=== PATIENT | male | born 1955 | race Caucasian/White ===

== ENCOUNTER 2018-12-15 06:51 | Outpatient (CLI) | payer OTHER ==
--- NOTE | 2018-12-15 08:02 | ULT ---
ABDOMINAL ULTRASOUND HISTORY: Abdominal pain. FINDINGS: Liver: Within normal limits. Gallbladder: No gallbladder calculi are visualized. There is no gallbladder wall thickening or perich olecystic fluid. Common duct: Common duct is normal in caliber measuring 4 mm in diameter. Pancreas: The limited visualized pancreas demonstrates a normal sonographic appearance. IVC: Limited visualized IVC has a normal sonographic appearance. Aorta: The aorta is normal in caliber. Spleen: Within normal limits. Kidneys: There is a wedge-shaped echogenic area seen at the junction of the superior pole and midport ion right kidney likely due to small area of scarring. Right kidney otherwise demonstrates a normal sonographic appearance. The left kidney demonstrates normal sonographic appearance. There is no hydro nephrosis seen bilaterally. The right kidney measuring 13 cm in length, and the left kidney measures 11.7 cm in length. IMPRESSION: No acute findings are seen on this abdominal ultrasound examination. No gallbladder calculi are seen, and the common duct is normal in caliber.
--- NOTE | 2018-12-16 07:28 | CT ---
CT CHEST NONCONTRAST CT ABDOMEN NONCONTRAST: HISTORY: Chest and abdomen pain. Dyspnea. FINDINGS: Lungs are slightly hyperinflated. No focal mass or infiltrate. No pleural fluid or pneumothorax. Lack of contrast limits evaluation of the soft tissues. Nonspecific lymph nodes within the mediastin um. Calcification within the arterial structures. Small hiatal hernia. A small amount of hyperdense material in the dependent portion of the gallbladder lumen. Each renal collecting system and proximal ureter are decompressed without stone evident. The pelvis was not imaged. Degenerative changes throughout the thoracic spine. IMPRESSION: 1. Pulmonary hyperinflation. No active pulmonary abnormalities are demonstrated. 2. Small hiatal hernia. 3. Cholelithiasis. 4. Atherosclerosis. POS: TPC
== END 2018-12-15 06:52 | disposition home or self-care (01) ==
LOC: SCSULT 06:51
PROVIDERS: ATTEND Family Medicine
DX: R05 Cough (principal); R06.09 Other forms of dyspnea; R53.1 Weakness; F10.10 Alcohol abuse, uncomplicated; R62.7 Adult failure to thrive; I70.0 Atherosclerosis of aorta; K80.20 Calculus of gallbladder without cholecystitis without obstruction; K44.9 Diaphragmatic hernia without obstruction or gangrene; R91.8 Other nonspecific abnormal finding of lung field
CPT/HCPCS: 71250; 82565; 93975

== ENCOUNTER 2019-08-07 07:59 | Day surgery (SDC) | payer OTHER ==
--- NOTE | 2019-08-07 09:30 | SPC ---
SPC CVP LINE PICC INITAL >5: 08/07/2019 9:27 AM INDICATION: Right lower extremity osteomyelitis need for long-term IV antibiotics PROCEDURE: Peripherally placed 46 cm single lumen power PICC line. PICC Line Placement: The left arm was prepped and draped in sterile fashion. One percent lidocaine was used for local anesthetic. Under fluoroscopic and ultrasound guidance, the left basilic vein was patent and accessed with a micr opuncture needle. A guide wire was then advanced into the left basilic vein. A vascular sheath was then advanced over a guide wire, and a single lumen PICC line was trimmed. The PICC line was th en advanced into the central venous system. A final placement film demonstrates the tip of the catheter terminated in the caval-atrial junction. After confirmation of the catheter position, the catheter was sutured in place at the skin entry site . There was no immediate complication. Total fluoroscopic time 1.3 minutes. Total exposure 11,846 mgray/sq cm IMPRESSION: Peripheral placement of a single lumen power PICC line into the left basilic vein using fluoroscopic and ultrasound guidance.
[2019-08-07] MEDS ORDERED: Cefepime 2 GM in Sodium Chloride 0.9% 100 ML IVPB SCH (10:45)
[2019-08-07] MEDS ORDERED: Vancomycin 1 GM in Premix Bag 1 BAG IVPB SCH (10:45)
[2019-08-07] MEDS ORDERED: Sodium Chloride 0.9% 20 ML ONE (11:12)
[2019-08-07 13:04] VITALS: BP 227/103
[2019-08-07 13:14] LABS: #Eosinphils 0.1 thou/uL (0.0-0.7); #Lymphocytes 1.6 thou/uL (1.20-3.40); #Monocytes 1.2 thou/uL (0.11-0.59); #Neutrophils 8.3 thou/uL (1.40-6.50); %Basophils 0.3 % (0.0-1.0); %Eosinophils 0.9 % (0.0-10.0); %Monocytes 10.8 % (0.0-10.0); Hemoglobin 12.6 g/dL (14.0-18.0); Mean Corpuscular Volume 97.3 fL (78.0-98.0); Mean Platelet Volume 8.7 fL (7.4-10.4); Platelet Count 189 thou/uL (130-400); RBC Distribution Width 11.1 % (11.5-14.5); Red Blood Cell (RBC) Count 3.81 mill/uL (4.70-6.10); White Blood Cell (WBC) Count 11.2 thou/uL (4.8-10.8)
[2019-08-07 13:36] LABS: ALT (SGPT) 15 U/L (8-55); AST (SGOT) 16 U/L (5-34); Albumin 3.7 g/dL (3.4-4.8); Alkaline Phosphatase 79 U/L (40-110); Anion Gap 11 mmol/L (10-20); BUN (Urea Nitrogen) 15 mg/dL (8.4-25.7); Bilirubin, Total 0.7 mg/dL (0.2-1.2); CRP (Inflammatory) 12.55 mg/dL (= or < 0.5); Calc. Creatinine Clearance 0 mL/min (70-130); Calcium 9.2 mg/dL (7.8-10.44); Carbon Dioxide 21 mmol/L (23-31); Chloride 105 mmol/L (98-107); Estimated GFR-MDRD 44; Globulin 3.6 g/dL (2.4-3.5); Glucose 174 mg/dL (80-115); Potassium 3.9 mmol/L (3.5-5.1); Protein, Total 7.3 g/dL (5.8-8.1); Sodium 133 mmol/L (136-145)
== END 2019-08-07 13:18 | disposition home or self-care (01) ==
LOC: SPEC 07:59 → ONC/OP 13:18
PROVIDERS: ATTEND Internal Medicine Infectious Disease
DX: M86.271 Subacute osteomyelitis, right ankle and foot (principal)
CPT/HCPCS: 36569; 36592; 80053; 85025; 86140; 96365; 96367; C1751; J0692; J1642; J3370; J3490

== ENCOUNTER 2022-05-13 14:14 | Inpatient (IN) | payer MEDICARE ==
[2022-05-13] MEDS ORDERED: Bisacodyl 10 MG SUPP PR PRN (16:50)
[2022-05-13] MEDS ORDERED: Senokot S 8.6-50 MG TAB PO PRN (16:50)
[2022-05-13] MEDS ORDERED: Calcium Carbonate 500 MG ChewTAB PO PRN (16:50)
[2022-05-13] MEDS ORDERED: Piperacillin/Tazobactam 3.375 GM in Sodium Chloride 0.9% 100 ML IVPB SCH ×2 (17:00→21:00)
[2022-05-13] MEDS: Lactated Ringer's 1,000 ML IV SCH (18:06)
[2022-05-13] MEDS: Morphine 2 MG/ML VIAL SLOW IVP PRN (18:22)
[2022-05-13] MEDS: Ondansetron PF 4 MG/2 ML Vial IVP PRN (18:23)
[2022-05-13 19:14] LABS: SARS-CoV-2 NAA Rapid Test Not Detected (NotDetected)
[2022-05-13] MEDS ORDERED: hydrALAZINE 25 MG TAB PO SCH (21:00)
[2022-05-13] MEDS ORDERED: cloNIDine 0.1 MG TAB PO SCH (21:00)
[2022-05-13] MEDS ORDERED: Rosuvastatin 20 MG TAB PO SCH (21:00)
[2022-05-14] MEDS: Acetaminophen 325 MG TAB PO PRN
[2022-05-14] MEDS ORDERED: Sodium Chloride 0.9% 500 ML IV SCH (02:15)
[2022-05-14] MEDS ORDERED: Dextrose 5% in Water 1,000 ML IV PRN (02:31)
[2022-05-14] MEDS ORDERED: Dextrose 50% Abboject 50 ML SYRINGE SLOW IVP PRN (02:31)
[2022-05-14] MEDS ORDERED: Albumin 25% 25 GM/100 ML BOT IVPB SCH ×2 (02:45→14:12)
[2022-05-14] MEDS ORDERED: Dextrose 5 % And 0.9 % NaCl 1,000 ML IV SCH (02:45)
[2022-05-14 02:47] LABS: Hemoglobin 8.4 g/dL (14.0-18.0); Mean Corpuscular HGB CONC 33.6 g/dL (32.0-36.0); Mean Corpuscular Hemoglobin 31.4 pg (27.0-31.0); Mean Corpuscular Volume 93.5 fl (78.0-98.0); RBC Distribution Width 14.8 % (11.5-14.5); Red Blood Cell (RBC) Count 2.67 mill/uL (4.70-6.10); White Blood Cell (WBC) Count 4.7 10x3/uL (4.8-10.8)
[2022-05-14] MEDS ORDERED: Vancomycin 1.5 GRAM/300 ML BAG IVPB SCH (02:52)
[2022-05-14 02:54] LABS: INR-International Normal Ratio 1.3; Prothrombin Time 17.1 sec (12.0-14.7)
[2022-05-14 02:55] LABS: PTT 42.7 sec (22.9-36.1)
[2022-05-14] MEDS ORDERED: NOREPINEPHRINE 8 MG/250 ML-D5W 250 ML IVPB SCH (03:00)
[2022-05-14 03:09] LABS: MDiff Complete? YES; Platelet Count 92 10x3/uL (130-400)
[2022-05-14] MEDS: Lactated Ringer's 1,000 ML IV SCH (03:09)
[2022-05-14 03:10] LABS: Band 27 % (5-11); Lymphocytes 8 % (21-51); Metamyelocyte 1 % (0-0); Monocytes 6 % (0-10); Neutrophil 58 % (42-75); Platelet Morphology Comment Appears Decreased
[2022-05-14 03:24] LABS: Troponin I 0.021 ng/mL (< 0.028)
[2022-05-14 03:27] LABS: ALT (SGPT) 147 U/L (8-55); AST (SGOT) 170 U/L (5-34); Alkaline Phosphatase 97 U/L (40-110); Anion Gap 12 mmol/L (10-20); BUN (Urea Nitrogen) 39 mg/dL (8.4-25.7); Bilirubin, Total 2.5 mg/dL (0.2-1.2); Calc. Creatinine Clearance 44 mL/min (70-130); Calcium 8.1 mg/dL (7.8-10.44); Carbon Dioxide 20 mmol/L (23-31); Chloride 115 mmol/L (98-107); Estimated GFR 21; Globulin 2.4 g/dL (2.4-3.5); Glucose 64 mg/dL (80-115); Magnesium 1.2 mg/dL (1.6-2.6); Potassium 3.4 mmol/L (3.5-5.1); Protein, Total 5.4 g/dL (5.8-8.1); Sodium 144 mmol/L (136-145)
[2022-05-14] MEDS ORDERED: Magnesium Sulfate In Water 4 GM in Premix Bag 1 BAG IVPB SCH (04:00)
[2022-05-14] MEDS ORDERED: Dextrose 5 %-0.45 % NaCl 1,000 ML IV SCH (04:00)
[2022-05-14] MEDS: VANCOMYCIN 1.75 GM/500 ML BAG 1.75 GM in Premix Bag 1 BAG IVPB SCH (04:05)
[2022-05-14] MEDS ORDERED: Meropenem 1 GM in Sodium Chloride 0.9% 100 ML IVPB SCH (05:00)
[2022-05-14 05:44] LABS: Lactic Acid 1.7 mmol/L (0.5-2.2)
[2022-05-14] MEDS ORDERED: Carvedilol 25 MG TAB PO SCH (08:00)
[2022-05-14] MEDS ORDERED: Magnesium 2 GM/50 ML(in water) 2 GM in Premix Bag 1 BAG IVPB SCH (08:30)
[2022-05-14] MEDS: Morphine 2 MG/ML VIAL SLOW IVP PRN ×2 (08:39→13:36)
[2022-05-14] MEDS: Ondansetron PF 4 MG/2 ML Vial IVP PRN (08:50)
[2022-05-14] MEDS ORDERED: Amlodipine 5 MG TAB PO SCH (09:00)
[2022-05-14] MEDS ORDERED: Aspirin 81 mg Enteric Coated Tablet PO SCH (09:00)
[2022-05-14] MEDS ORDERED: Lansoprazole 3 MG/ML ORAL SUSPENSION PER TUBE SCH (09:00)
[2022-05-14] MEDS: Dextrose 5 %-0.45 % NaCl 1,000 ML IV SCH ×2 (14:17→20:50)
[2022-05-14] MEDS: Albumin 25% 25 GM/100 ML BOT IVPB SCH ×2 (14:17→20:49)
[2022-05-14] MEDS: Meropenem 500 MG in Sodium Chloride 0.9% 100 ML IVPB SCH (14:18)
[2022-05-14] MEDS ORDERED: Iopamidol 30 ML ONE (14:52)
[2022-05-14] MEDS ORDERED: Indomethacin 50 MG SUPP ONE (14:53)
[2022-05-14] MEDS ORDERED: Albumin 5% 500 ML ONE (15:10)
[2022-05-14] MEDS ORDERED: fentaNYL PF 100 MCG/2 ML SYRINGE ONE (15:10)
[2022-05-14 15:55] LABS: INR-International Normal Ratio 1.7; Prothrombin Time 20.8 sec (12.0-14.7)
[2022-05-14] MEDS ORDERED: Bupivacaine/Epinephrine 0.25% 30 ML VIAL ONE (17:00)
[2022-05-14] MEDS ORDERED: Bupivacaine HCl 0.5%/Epinephrine 1:200,000/PF 30 ml Vial ONE (17:00)
[2022-05-14] MEDS ORDERED: Fentanyl 250 MCG/5 ML VIAL ONE (17:18)
[2022-05-14] MEDS ORDERED: SUGAMMADEX SODIUM 200 MG/2 ML VIAL ONE (17:18)
[2022-05-14] MEDS ORDERED: Sevoflurane 250 ML INH ANEST BOTTLE ONE (17:20)
[2022-05-14] MEDS ORDERED: Rocuronium Bromide 10 MG/ML (10ML VIAL) ONE (17:21)
[2022-05-14] MEDS ORDERED: Calcium Chloride 1 GM/10 ML Abboject SYRINGE ONE (17:21)
[2022-05-14] MEDS ORDERED: Vecuronium 10 MG VIAL ONE (17:21)
[2022-05-14] MEDS ORDERED: Albumin 5% 250 ML ONE ×2 (18:15→18:16)
[2022-05-14] MEDS ORDERED: Albumin 5% 1,000 ML ONE (18:15)
[2022-05-14] MEDS ORDERED: Sodium Bicarb 50 MEQ/50 ML VIAL ONE (18:26)
[2022-05-14] MEDS ORDERED: Propofol 1,000 MG/100 ML VIAL IV ONE (19:40)
[2022-05-14] MEDS ORDERED: Fentanyl CADD 100 ML ONE (19:40)
[2022-05-14] MEDS ORDERED: Fentanyl CADD 100 ML IV SCH (20:00)
[2022-05-14] MEDS ORDERED: DISCONTINUE PREVIOUS NARCOTIC PAIN MEDICATIONS AND BENZODIAZEPINES FS SCH (20:00)
[2022-05-14] MEDS ORDERED: Morphine 2 MG/ML VIAL SLOW IVP PRN (20:00)
[2022-05-14] MEDS ORDERED: Propofol BOLUS 1,000 MG/100 ML VIAL IV PRN (20:00)
[2022-05-14] MEDS ORDERED: Propofol 1,000 MG/100 ML VIAL IV PRN (20:00)
[2022-05-14] MEDS ORDERED: Lorazepam 2 MG/ML VIAL SLOW IVP PRN (20:00)
[2022-05-14] MEDS ORDERED: Fentanyl BOLUS 250 ML IVPB PRN (20:00)
[2022-05-14 20:35] LABS: Actual Bicarbonate (HCO3a) 18.6 mEq/L (22-28); Base Excess (BEa) -5.5 mEq/L (-2.0 to +3.0); Calcium, Ionized (arterial) 1.07 mmol/L (1.12-1.30); Carboxyhemoglobin (COHb) 0.3 gm% (0.0-3.0); Hemoglobin (Hb) 7.8 g/dL (14.0-18.0); O2 Tension (PaO2), arterial 64.8 mmHg (> 80.0); Potassium - ABG Lab 4.11 mmol/L (3.70-5.30)
[2022-05-14 20:36] LABS: Puncture Site RRA
[2022-05-15] MEDS: Albumin 25% 25 GM/100 ML BOT IVPB SCH ×4 (00:47→18:48)
[2022-05-15 01:21] LABS: Hemoglobin 8.3 g/dL (14.0-18.0); Mean Corpuscular HGB CONC 33.7 g/dL (32.0-36.0); Mean Corpuscular Hemoglobin 31.7 pg (27.0-31.0); Mean Corpuscular Volume 93.8 fl (78.0-98.0); Mean Platelet Volume 9.3 fL (7.4-10.4); Platelet Count 93 10x3/uL (130-400); RBC Distribution Width 14.8 % (11.5-14.5); Red Blood Cell (RBC) Count 2.61 mill/uL (4.70-6.10); White Blood Cell (WBC) Count 6.6 10x3/uL (4.8-10.8)
[2022-05-15] MEDS: Meropenem 500 MG in Sodium Chloride 0.9% 100 ML IVPB SCH ×2 (01:30→13:28)
[2022-05-15 01:32] LABS: INR-International Normal Ratio 1.6; PTT 41.4 sec (22.9-36.1)
[2022-05-15 01:40] LABS: ALT (SGPT) 147 U/L (8-55); AST (SGOT) 182 U/L (5-34); Albumin 3.6 g/dL (3.4-4.8); Alkaline Phosphatase 102 U/L (40-110); Anion Gap 16 mmol/L (10-20); BUN (Urea Nitrogen) 41 mg/dL (8.4-25.7); Bilirubin, Direct 2.7 mg/dL (0.1-0.3); Bilirubin, Total 3.4 mg/dL (0.2-1.2); Calc. Creatinine Clearance 32 mL/min (70-130); Calcium 8.1 mg/dL (7.8-10.44); Carbon Dioxide 19 mmol/L (23-31); Chloride 114 mmol/L (98-107); Estimated GFR 19; Glucose 142 mg/dL (80-115); Magnesium 2.6 mg/dL (1.6-2.6); Phosphorus 3.1 mg/dL (2.3-4.7); Potassium 3.8 mmol/L (3.5-5.1); Protein, Total 5.6 g/dL (5.8-8.1); Sodium 145 mmol/L (136-145)
[2022-05-15 02:02] LABS: Anisocytosis SLIGHT = 6-15 cells (100X) (0-5/hpf); Band 33 % (5-11); Eosinophils 3 % (0-10); Lymphocytes 11 % (21-51); MDiff Complete? YES; Monocytes 2 % (0-10); Neutrophil 50 % (42-75); Platelet Morphology Comment Appears Decreased; Polychromasia SLIGHT = 2-3 cells (100X) (0-2/hpf); Vacuoles SLIGHT
[2022-05-15] MEDS: VANCOMYCIN 1.75 GM/500 ML BAG 1.75 GM in Premix Bag 1 BAG IVPB SCH (03:14)
[2022-05-15 04:42] LABS: INR-International Normal Ratio 1.7; PTT 44.7 sec (22.9-36.1); Prothrombin Time 20.7 sec (12.0-14.7)
[2022-05-15 05:00] LABS: ALT (SGPT) 132 U/L (8-55); AST (SGOT) 159 U/L (5-34); Albumin 3.5 g/dL (3.4-4.8); Alkaline Phosphatase 100 U/L (40-110); Anion Gap 16 mmol/L (10-20); BUN (Urea Nitrogen) 42 mg/dL (8.4-25.7); Calc. Creatinine Clearance 32 mL/min (70-130); Calcium 7.9 mg/dL (7.8-10.44); Carbon Dioxide 20 mmol/L (23-31); Chloride 113 mmol/L (98-107); Estimated GFR 19; Glucose 119 mg/dL (80-115); Lipase 660 U/L (8-78); Magnesium 2.5 mg/dL (1.6-2.6); Potassium 3.5 mmol/L (3.5-5.1); Protein, Total 5.5 g/dL (5.8-8.1); Sodium 145 mmol/L (136-145)
[2022-05-15 05:01] LABS: ALT (SGPT) 130 U/L (8-55); AST (SGOT) 160 U/L (5-34); Albumin 3.7 g/dL (3.4-4.8); Alkaline Phosphatase 107 U/L (40-110); Bilirubin, Direct 2.4 mg/dL (0.1-0.3); Bilirubin, Total 2.9 mg/dL (0.2-1.2); Phosphorus 2.9 mg/dL (2.3-4.7); Protein, Total 5.5 g/dL (5.8-8.1)
[2022-05-15 05:18] LABS: Anisocytosis SLIGHT = 6-15 cells (100X) (0-5/hpf); Band 34 % (5-11); Eosinophils 3 % (0-10); Hemoglobin 7.6 g/dL (14.0-18.0); Lymphocytes 6 % (21-51); MDiff Complete? YES; Mean Corpuscular HGB CONC 34.4 g/dL (32.0-36.0); Mean Corpuscular Hemoglobin 32.2 pg (27.0-31.0); Mean Corpuscular Volume 93.6 fl (78.0-98.0); Mean Platelet Volume 9.3 fL (7.4-10.4); Metamyelocyte 3 % (0-0); Monocytes 1 % (0-10); Myelocyte 1 % (0-0); Neutrophil 52 % (42-75); Nucleated RBC 1 % (0); Ovalocytes SLIGHT = 2-5 cells (100X) (0-1/hpf); Platelet Count 84 10x3/uL (130-400); Platelet Morphology Comment Appears Decreased; Polychromasia SLIGHT = 2-3 cells (100X) (0-2/hpf); RBC Distribution Width 14.6 % (11.5-14.5); Red Blood Cell (RBC) Count 2.37 mill/uL (4.70-6.10); White Blood Cell (WBC) Count 7.4 10x3/uL (4.8-10.8)
[2022-05-15] MEDS: Dextrose 5 %-0.45 % NaCl 1,000 ML IV SCH ×2 (05:35→13:38)
[2022-05-15 07:33] LABS: Actual Bicarbonate (HCO3a) 20.6 mEq/L (22-28); Base Excess (BEa) -3.5 mEq/L (-2.0 to +3.0); CO2 Tension 33.1 mmHg (35.0-45.0); Calcium, Ionized (arterial) 1.01 mmol/L (1.12-1.30); Carboxyhemoglobin (COHb) 0.7 gm% (0.0-3.0); Hemoglobin (Hb) 7.6 g/dL (14.0-18.0); O2 Tension (PaO2), arterial 119.5 mmHg (> 80.0); Potassium - ABG Lab 3.51 mmol/L (3.70-5.30); pH, Arterial 7.41 (7.35-7.45)
[2022-05-15 07:36] LABS: ALV-art Gradient 195.625 mmHg (0-20); Puncture Site Arterial Line
[2022-05-15] MEDS: Lansoprazole 15 MG/5 ML (BATCHED)UDCUP PER TUBE SCH (10:20)
[2022-05-15] MEDS ORDERED: Dexmedetomidine In 0.9 % NaCl 100 ML IVPB SCH (11:30)
[2022-05-15] MEDS ORDERED: Metolazone 2.5 MG TAB PO SCH (15:15)
[2022-05-16] MEDS: Dextrose 5 %-0.45 % NaCl 1,000 ML IV SCH ×2 (00:53→16:36)
[2022-05-16] MEDS: Albumin 25% 25 GM/100 ML BOT IVPB SCH ×5 (00:57→23:59)
[2022-05-16] MEDS: Meropenem 500 MG in Sodium Chloride 0.9% 100 ML IVPB SCH ×2 (01:34→14:05)
[2022-05-16 05:20] LABS: INR-International Normal Ratio 1.4; Prothrombin Time 17.6 sec (12.0-14.7)
[2022-05-16 05:21] LABS: PTT 43.7 sec (22.9-36.1)
[2022-05-16 05:30] LABS: ALT (SGPT) 99 U/L (8-55); AST (SGOT) 108 U/L (5-34); Albumin 3.8 g/dL (3.4-4.8); Alkaline Phosphatase 133 U/L (40-110); Anion Gap 14 mmol/L (10-20); BUN (Urea Nitrogen) 48 mg/dL (8.4-25.7); Bilirubin, Total 3.3 mg/dL (0.2-1.2); Calc. Creatinine Clearance 27 mL/min (70-130); Calcium 8.1 mg/dL (7.8-10.44); Carbon Dioxide 19 mmol/L (23-31); Chloride 112 mmol/L (98-107); Estimated GFR 15; Globulin 2.1 g/dL (2.4-3.5); Glucose 122 mg/dL (80-115); Magnesium 2.4 mg/dL (1.6-2.6); Potassium 3.5 mmol/L (3.5-5.1); Protein, Total 5.9 g/dL (5.8-8.1); Sodium 141 mmol/L (136-145)
[2022-05-16 05:38] LABS: Band 26 % (5-11); Eosinophils 9 % (0-10); Hemoglobin 8.2 g/dL (14.0-18.0); Lymphocytes 10 % (21-51); MDiff Complete? YES; Mean Corpuscular HGB CONC 34.1 g/dL (32.0-36.0); Mean Corpuscular Hemoglobin 31.9 pg (27.0-31.0); Mean Corpuscular Volume 93.7 fl (78.0-98.0); Mean Platelet Volume 10.2 fL (7.4-10.4); Metamyelocyte 1 % (0-0); Monocytes 1 % (0-10); Neutrophil 53 % (42-75); Platelet Count 75 10x3/uL (130-400); Platelet Morphology Comment Appears Decreased; RBC Distribution Width 14.4 % (11.5-14.5); RBC Morphology Normal; Red Blood Cell (RBC) Count 2.58 mill/uL (4.70-6.10); White Blood Cell (WBC) Count 7.4 10x3/uL (4.8-10.8)
[2022-05-16] MEDS ORDERED: Metolazone 2.5 MG TAB PO SCH (09:00)
[2022-05-16] MEDS: Lansoprazole 15 MG/5 ML (BATCHED)UDCUP PER TUBE SCH (11:09)
[2022-05-16] MEDS: Lactated Ringer's 1,000 ML IV SCH (11:09)
[2022-05-16 17:19] LABS: Hemoglobin 8.6 g/dL (14.0-18.0); Mean Corpuscular HGB CONC 33.8 g/dL (32.0-36.0); Mean Corpuscular Hemoglobin 31.9 pg (27.0-31.0); Mean Corpuscular Volume 94.3 fl (78.0-98.0); Mean Platelet Volume 9.6 fL (7.4-10.4); Platelet Count 64 10x3/uL (130-400); RBC Distribution Width 14.7 % (11.5-14.5); Red Blood Cell (RBC) Count 2.71 mill/uL (4.70-6.10); White Blood Cell (WBC) Count 9.1 10x3/uL (4.8-10.8)
[2022-05-16 17:30] LABS: INR-International Normal Ratio 1.2; PTT 41.6 sec (22.9-36.1); Prothrombin Time 16.2 sec (12.0-14.7)
[2022-05-16 17:32] LABS: Band 13 % (5-11); Eosinophils 13 % (0-10); Lymphocytes 11 % (21-51); MDiff Complete? YES; Monocytes 4 % (0-10); Neutrophil 59 % (42-75); Ovalocytes SLIGHT = 2-5 cells (100X) (0-1/hpf); Platelet Morphology Comment Appears Decreased; Polychromasia SLIGHT = 2-3 cells (100X) (0-2/hpf)
[2022-05-16] MEDS: hydrALAZINE 20 MG/ML VIAL SLOW IVP PRN (20:08)
[2022-05-17] MEDS: Lactated Ringer's 1,000 ML IV SCH (03:26)
[2022-05-17 04:15] LABS: Reticulocyte Count 2.2 % (0.5-1.5)
[2022-05-17] MEDS: hydrALAZINE 20 MG/ML VIAL SLOW IVP PRN ×2 (04:17→19:10)
[2022-05-17 04:27] LABS: Band 17 % (5-11); Eosinophils 3 % (0-10); Hemoglobin 7.9 g/dL (14.0-18.0); Hypochromia SLIGHT = 6-15 cells (100X) (0-5/hpf); Lymphocytes 14 % (21-51); MDiff Complete? YES; Mean Corpuscular HGB CONC 33.8 g/dL (32.0-36.0); Mean Corpuscular Hemoglobin 32.1 pg (27.0-31.0); Mean Corpuscular Volume 94.7 fl (78.0-98.0); Mean Platelet Volume 10.2 fL (7.4-10.4); Monocytes 17 % (0-10); Neutrophil 48 % (42-75); Platelet Count 58 10x3/uL (130-400); Platelet Morphology Comment Appears Decreased; RBC Distribution Width 14.6 % (11.5-14.5); Reactive Lymphocytes 1 % (0-10); Red Blood Cell (RBC) Count 2.46 mill/uL (4.70-6.10); White Blood Cell (WBC) Count 7.8 10x3/uL (4.8-10.8)
[2022-05-17 04:29] LABS: Iron 20 ug/dL (65-175); Iron Binding Capacity, Total 85 mcg/dL (261-462)
[2022-05-17 04:30] LABS: ALT (SGPT) 66 U/L (8-55); AST (SGOT) 62 U/L (5-34); Albumin 3.7 g/dL (3.4-4.8); Alkaline Phosphatase 222 U/L (40-110); Anion Gap 13 mmol/L (10-20); BUN (Urea Nitrogen) 56 mg/dL (8.4-25.7); Bilirubin, Total 2.9 mg/dL (0.2-1.2); Calc. Creatinine Clearance 25 mL/min (70-130); Calcium 8.6 mg/dL (7.8-10.44); Carbon Dioxide 20 mmol/L (23-31); Chloride 113 mmol/L (98-107); Estimated GFR 13; Globulin 2.1 g/dL (2.4-3.5); Glucose 88 mg/dL (80-115); Iron 20 ug/dL (65-175); Iron Binding Capacity, Total 86 mcg/dL (261-462); Magnesium 2.4 mg/dL (1.6-2.6); Potassium 3.7 mmol/L (3.5-5.1); Protein, Total 5.8 g/dL (5.8-8.1); Sodium 142 mmol/L (136-145)
[2022-05-17 04:59] LABS: HBCM Index 0.08 S/CO (0-0.79); HBSAg Index 0.26 S/CO (0-0.99); Hep A IgM AB Non-Reactive (NonReactive); Hep A IgM S/CO 0.24 S/CO (0-0.79); Hep B Surf Ag Non-Reactive S/CO (NonReactive); Hepatitis B Core IgM Abs Non-Reactive (NonReactive)
[2022-05-17 05:04] LABS: Vitamin B12 Greater than 2000 pg/mL (211-911)
[2022-05-17 05:16] LABS: Ferritin 2653.17 ng/mL (22-322)
[2022-05-17] MEDS: Albumin 25% 25 GM/100 ML BOT IVPB SCH (05:29)
[2022-05-17] MEDS ORDERED: Metolazone 5 MG TAB PO SCH (08:30)
[2022-05-17] MEDS: Ondansetron PF 4 MG/2 ML Vial IVP PRN (11:17)
[2022-05-17 11:23] LABS: Bacteria/HPF 1+ HPF (None Seen); Bilirubin Negative (Negative); Blood, Urine Trace (Negative); Clarity Turbid (Clear); Glucose, Urine (Dipstick) Normal (Negative); Ketone, Urine Negative (Negative); Leukocyte Negative Leu/uL (Negative); Nitrite Negative (Negative); Protein, Urine (Dipstick) 100 mg/dL (Neg-Trace); RBC/HPF 0-3 HPF (0-3); Specific Gravity, Urine 1.013 (1.002-1.036); Squamous Epithelial 0-3 HPF (0-3); Urobilinogen Normal mg/dL (Less than 2); WBC/HPF 0-3 HPF (0-3); pH, Urine 5.5 (5.0-9.0)
[2022-05-17] MEDS: Lansoprazole 15 MG/5 ML (BATCHED)UDCUP PER TUBE SCH (11:35)
[2022-05-17] MEDS ORDERED: Scopolamine 1.5 mg/72 hour Patch TD SCH (12:00)
[2022-05-17] MEDS: Meropenem 500 MG in Sodium Chloride 0.9% 100 ML IVPB SCH ×2 (13:15)
[2022-05-18] MEDS: Meropenem 500 MG in Sodium Chloride 0.9% 100 ML IVPB SCH (00:29)
[2022-05-18] MEDS: Lactated Ringer's 1,000 ML IV SCH ×2 (00:30→10:05)
[2022-05-18 04:29] LABS: INR-International Normal Ratio 1.2; Prothrombin Time 15.3 sec (12.0-14.7)
[2022-05-18 04:30] LABS: PTT 37.6 sec (22.9-36.1)
[2022-05-18 04:43] LABS: ALT (SGPT) 58 U/L (8-55); AST (SGOT) 57 U/L (5-34); Albumin 3.6 g/dL (3.4-4.8); Alkaline Phosphatase 265 U/L (40-110); Anion Gap 16 mmol/L (10-20); BUN (Urea Nitrogen) 65 mg/dL (8.4-25.7); Bilirubin, Total 2.4 mg/dL (0.2-1.2); Calc. Creatinine Clearance 23 mL/min (70-130); Calcium 8.7 mg/dL (7.8-10.44); Carbon Dioxide 18 mmol/L (23-31); Chloride 113 mmol/L (98-107); Estimated GFR 12; Globulin 2.1 g/dL (2.4-3.5); Glucose 86 mg/dL (80-115); Magnesium 2.4 mg/dL (1.6-2.6); Potassium 3.8 mmol/L (3.5-5.1); Protein, Total 5.7 g/dL (5.8-8.1); Sodium 143 mmol/L (136-145)
[2022-05-18 05:03] LABS: Anisocytosis SLIGHT = 6-15 cells (100X) (0-5/hpf); Band 4 % (5-11); Eosinophils 7 % (0-10); Hemoglobin 8.2 g/dL (14.0-18.0); Lymphocytes 9 % (21-51); MDiff Complete? YES; Mean Corpuscular HGB CONC 32.5 g/dL (32.0-36.0); Mean Corpuscular Volume 95.3 fl (78.0-98.0); Mean Platelet Volume 10.8 fL (7.4-10.4); Monocytes 11 % (0-10); Neutrophil 69 % (42-75); Platelet Count 61 10x3/uL (130-400); Platelet Morphology Comment Appears Decreased; RBC Distribution Width 14.8 % (11.5-14.5); Red Blood Cell (RBC) Count 2.65 mill/uL (4.70-6.10); White Blood Cell (WBC) Count 7.4 10x3/uL (4.8-10.8)
[2022-05-18] MEDS: EPOETIN ALFA-EPBX (ESRD) 10,000 UNIT/ML VIAL SC SCH (10:03)
[2022-05-18] MEDS: cefTRIAXone\\ROCEPHIN 2 GM in Sodium Chloride 0.9% 100 ML IVPB SCH (10:03)
[2022-05-18] MEDS: Lansoprazole 15 MG/5 ML (BATCHED)UDCUP PER TUBE SCH (10:04)
[2022-05-18] MEDS: Acetaminophen 325 MG TAB PO PRN ×2 (12:20→20:39)
[2022-05-18] MEDS: traMADol HCl 50 MG TAB PO PRN ×2 (15:05→23:33)
[2022-05-19] MEDS: hydrALAZINE 20 MG/ML VIAL SLOW IVP PRN ×2 (04:04→21:15)
[2022-05-19 05:12] LABS: INR-International Normal Ratio 1.2; Prothrombin Time 15.5 sec (12.0-14.7)
[2022-05-19 05:13] LABS: PTT 39.9 sec (22.9-36.1)
[2022-05-19 05:16] LABS: Band 18 % (5-11); Eosinophils 6 % (0-10); Hemoglobin 8.3 g/dL (14.0-18.0); Hypochromia SLIGHT = 6-15 cells (100X) (0-5/hpf); Lymphocytes 18 % (21-51); MDiff Complete? YES; Mean Corpuscular HGB CONC 33.7 g/dL (32.0-36.0); Mean Corpuscular Hemoglobin 31.8 pg (27.0-31.0); Mean Corpuscular Volume 94.3 fl (78.0-98.0); Mean Platelet Volume 10.6 fL (7.4-10.4); Monocytes 4 % (0-10); Neutrophil 53 % (42-75); Platelet Count 58 10x3/uL (130-400); Platelet Morphology Comment Appears Decreased; RBC Distribution Width 14.6 % (11.5-14.5); Reactive Lymphocytes 1 % (0-10); Red Blood Cell (RBC) Count 2.63 mill/uL (4.70-6.10); White Blood Cell (WBC) Count 5.6 10x3/uL (4.8-10.8)
[2022-05-19 05:20] LABS: ALT (SGPT) 47 U/L (8-55); AST (SGOT) 52 U/L (5-34); Albumin 3.6 g/dL (3.4-4.8); Alkaline Phosphatase 277 U/L (40-110); Anion Gap 14 mmol/L (10-20); BUN (Urea Nitrogen) 72 mg/dL (8.4-25.7); Bilirubin, Total 1.8 mg/dL (0.2-1.2); Calc. Creatinine Clearance 24 mL/min (70-130); Calcium 8.5 mg/dL (7.8-10.44); Carbon Dioxide 21 mmol/L (23-31); Chloride 109 mmol/L (98-107); Estimated GFR 13; Globulin 2.3 g/dL (2.4-3.5); Glucose 100 mg/dL (80-115); Magnesium 2.2 mg/dL (1.6-2.6); Potassium 3.5 mmol/L (3.5-5.1); Protein, Total 5.9 g/dL (5.8-8.1); Sodium 140 mmol/L (136-145)
[2022-05-19] MEDS: Lansoprazole 15 MG/5 ML (BATCHED)UDCUP PER TUBE SCH (08:25)
[2022-05-19] MEDS: Ondansetron PF 4 MG/2 ML Vial IVP PRN (08:25)
[2022-05-19] MEDS: cefTRIAXone\\ROCEPHIN 2 GM in Sodium Chloride 0.9% 100 ML IVPB SCH (08:25)
[2022-05-19] MEDS: Polyethylene Glycol 3350 17 GM Packet PO SCH (08:37)
[2022-05-19] MEDS: Lactated Ringer's 1,000 ML IV SCH (09:09)
[2022-05-19 12:04] LABS: Hep C IgG Ab Non-Reactive (NonReactive); Hep C Index 0.63 S/CO (0-0.79)
[2022-05-20] MEDS: Lactated Ringer's 1,000 ML IV SCH ×2 (04:56→08:45)
[2022-05-20] MEDS: hydrALAZINE 20 MG/ML VIAL SLOW IVP PRN ×2 (04:56→11:26)
[2022-05-20] MEDS: Ondansetron PF 4 MG/2 ML Vial IVP PRN ×2 (04:56→11:34)
[2022-05-20 06:11] LABS: INR-International Normal Ratio 1.1; Prothrombin Time 14.6 sec (12.0-14.7)
[2022-05-20 06:12] LABS: PTT 41.8 sec (22.9-36.1)
[2022-05-20 06:20] LABS: ALT (SGPT) 37 U/L (8-55); AST (SGOT) 40 U/L (5-34); Albumin 3.6 g/dL (3.4-4.8); Alkaline Phosphatase 291 U/L (40-110); Anion Gap 17 mmol/L (10-20); BUN (Urea Nitrogen) 70 mg/dL (8.4-25.7); Bilirubin, Total 1.6 mg/dL (0.2-1.2); Calc. Creatinine Clearance 26 mL/min (70-130); Calcium 8.6 mg/dL (7.8-10.44); Carbon Dioxide 18 mmol/L (23-31); Chloride 111 mmol/L (98-107); Estimated GFR 14; Globulin 2.3 g/dL (2.4-3.5); Glucose 107 mg/dL (80-115); Potassium 3.7 mmol/L (3.5-5.1); Protein, Total 5.9 g/dL (5.8-8.1); Sodium 142 mmol/L (136-145)
[2022-05-20 06:25] LABS: Hemoglobin 8.2 g/dL (14.0-18.0); Mean Corpuscular HGB CONC 33.7 g/dL (32.0-36.0); Mean Corpuscular Hemoglobin 31.8 pg (27.0-31.0); Mean Corpuscular Volume 94.4 fl (78.0-98.0); Mean Platelet Volume 11.4 fL (7.4-10.4); Platelet Count 69 10x3/uL (130-400); RBC Distribution Width 14.8 % (11.5-14.5); Red Blood Cell (RBC) Count 2.59 mill/uL (4.70-6.10); White Blood Cell (WBC) Count 6.5 10x3/uL (4.8-10.8)
[2022-05-20 06:33] LABS: Band 11 % (5-11); Eosinophils 10 % (0-10); Lymphocytes 23 % (21-51); MDiff Complete? YES; Metamyelocyte 1 % (0-0); Monocytes 11 % (0-10); Neutrophil 44 % (42-75); Platelet Morphology Comment Appears Decreased; Polychromasia SLIGHT = 2-3 cells (100X) (0-2/hpf)
[2022-05-20] MEDS: Polyethylene Glycol 3350 17 GM Packet PO SCH (08:43)
[2022-05-20] MEDS: cefTRIAXone\\ROCEPHIN 2 GM in Sodium Chloride 0.9% 100 ML IVPB SCH (08:43)
[2022-05-20] MEDS: Lansoprazole 15 MG/5 ML (BATCHED)UDCUP PER TUBE SCH (08:43)
[2022-05-20] MEDS ORDERED: Tamsulosin HCl 0.4 MG CAP PO SCH (10:45)
[2022-05-20 11:52] LABS: Actual Bicarbonate (HCO3v) 17 mEq/L (22-28); Analyzer IN Cardio OR; Base Excess -10.7 mEq/L (-2.0 to +3.0); Calcium, Ionized (venous) 1.09 mmol/L (1.16-1.32); Chloride (VBG) 113 mmol/L (98-106); Hemoglobin (Hb) 7.2 g/dL (12.6-17.4); Potassium (VBG) 4.12 mmol/L (3.70-5.30); Sodium 148.3 mmol/L (133-146)
[2022-05-20 11:52] LABS: Actual Bicarbonate (HCO3a) 19.5 mEq/L (22-28); Analyzer IN Cardio OR; Base Excess (BEa) -5.6 mEq/L (-2.0 to +3.0); CO2 Tension 36.3 mmHg (35.0-45.0); Calcium, Ionized (arterial) 0.99 mmol/L (1.12-1.30); Carboxyhemoglobin (COHb) 0.7 gm% (0.0-3.0); Hemoglobin (Hb) 7.1 g/dL (14.0-18.0); O2 Tension (PaO2), arterial 111.2 mmHg (> 80.0); Potassium - ABG Lab 4.26 mmol/L (3.70-5.30); pH, Arterial 7.35 (7.35-7.45)
[2022-05-20 11:53] LABS: pH (venous) 7.18 (7.32-7.43)
[2022-05-20 11:54] LABS: Puncture Site Arterial Line
[2022-05-20] MEDS ORDERED: Polyethylene Glycol 3350 17 GM Packet PO PRN (13:05)
[2022-05-20] MEDS ORDERED: Bisacodyl 10 MG SUPP PR PRN (13:08)
[2022-05-20 13:14] LABS: Bilirubin Negative (Negative); Blood, Urine Negative (Negative); CAUTI Indications for Culture Dysuria,urgency,freq; Clarity Clear (Clear); Glucose, Urine (Dipstick) Normal (Negative); Ketone, Urine Negative (Negative); Leukocyte Negative Leu/uL (Negative); Nitrite Negative (Negative); Protein, Urine (Dipstick) 30 mg/dL (Neg-Trace); RBC/HPF 0-3 HPF (0-3); Specific Gravity, Urine 1.012 (1.002-1.036); Squamous Epithelial None Seen HPF (0-3); Urobilinogen Normal mg/dL (Less than 2)
[2022-05-20 13:15] LABS: Bacteria/HPF Rare-Few HPF (None Seen); Yeast-Budding None Seen HPF (None Seen)
[2022-05-20 13:17] LABS: Urine Culture Reflex No No
[2022-05-20] MEDS: hydrALAZINE 25 MG TAB PO SCH (22:49)
[2022-05-20] MEDS: Bisacodyl 5 MG TAB PO PRN (23:01)
[2022-05-21 05:42] LABS: #Eosinphils 0.5 thou/uL (0.0-0.7); #Lymphocytes 1.7 thou/uL (1.20-3.40); #Monocytes 0.8 thou/uL (0.11-0.59); #Neutrophils 3.2 thou/uL (1.40-6.50); %Eosinophils 8.3 % (0.0-10.0); %Lymphocytes 26.8 % (21.0-51.0); %Monocytes 13.2 % (0.0-10.0); %Neutrophils 51.7 % (42.0-75.0); Hemoglobin 8.1 g/dL (14.0-18.0); Mean Corpuscular HGB CONC 33.5 g/dL (32.0-36.0); Mean Corpuscular Hemoglobin 31.8 pg (27.0-31.0); Mean Platelet Volume 10.9 fL (7.4-10.4); Platelet Count 86 10x3/uL (130-400); RBC Distribution Width 14.9 % (11.5-14.5); Red Blood Cell (RBC) Count 2.54 mill/uL (4.70-6.10); White Blood Cell (WBC) Count 6.2 10x3/uL (4.8-10.8)
[2022-05-21 05:46] LABS: INR-International Normal Ratio 1.2; Prothrombin Time 15.4 sec (12.0-14.7)
[2022-05-21 05:48] LABS: PTT 40.7 sec (22.9-36.1)
[2022-05-21 05:59] LABS: Anion Gap 16 mmol/L (10-20); BUN (Urea Nitrogen) 68 mg/dL (8.4-25.7); Calc. Creatinine Clearance 31 mL/min (70-130); Calcium 8.4 mg/dL (7.8-10.44); Carbon Dioxide 18 mmol/L (23-31); Chloride 111 mmol/L (98-107); Estimated GFR 14; Glucose 105 mg/dL (80-115); Potassium 3.5 mmol/L (3.5-5.1); Sodium 141 mmol/L (136-145)
[2022-05-21] MEDS ORDERED: Famotidine 20 MG TAB PO SCH (09:00)
[2022-05-21] MEDS ORDERED: Amoxicillin/Potassium Clav 875 MG TAB PO SCH (09:00)
[2022-05-21] MEDS: Lansoprazole 15 MG/5 ML (BATCHED)UDCUP PER TUBE SCH (09:06)
[2022-05-21] MEDS: hydrALAZINE 25 MG TAB PO SCH ×3 (09:06→21:52)
[2022-05-21] MEDS: Sodium Bicarbonate Tab 325 MG TAB PO SCH ×3 (09:06→21:53)
[2022-05-21] MEDS: Tamsulosin HCl 0.4 MG CAP PO SCH (09:06)
[2022-05-21] MEDS: Polyethylene Glycol 3350 17 GM Packet PO SCH (09:11)
[2022-05-21] MEDS: Amoxicillin/Potassium Clav 500 MG TAB PO SCH ×2 (09:11→21:52)
[2022-05-21] MEDS: Bisacodyl 5 MG TAB PO PRN (11:27)
[2022-05-21] MEDS: Sodium Chloride 0.9% 1,000 ML IV SCH (13:01)
[2022-05-21] MEDS: hydrALAZINE 20 MG/ML VIAL SLOW IVP PRN (13:20)
[2022-05-22] MEDS: Sodium Chloride 0.9% 1,000 ML IV SCH ×2 (00:01→15:49)
[2022-05-22 05:28] LABS: #Eosinphils 0.5 thou/uL (0.0-0.7); #Lymphocytes 1.4 thou/uL (1.20-3.40); #Monocytes 0.7 thou/uL (0.11-0.59); #Neutrophils 4.2 thou/uL (1.40-6.50); %Basophils 0.5 % (0.0-1.0); %Lymphocytes 20.2 % (21.0-51.0); %Monocytes 10.4 % (0.0-10.0); %Neutrophils 60.9 % (42.0-75.0); Hemoglobin 8.1 g/dL (14.0-18.0); Mean Corpuscular HGB CONC 31.7 g/dL (32.0-36.0); Mean Corpuscular Hemoglobin 30.8 pg (27.0-31.0); Mean Corpuscular Volume 97.3 fl (78.0-98.0); Mean Platelet Volume 10.5 fL (7.4-10.4); Platelet Count 138 10x3/uL (130-400); RBC Distribution Width 15.3 % (11.5-14.5); Red Blood Cell (RBC) Count 2.63 mill/uL (4.70-6.10); White Blood Cell (WBC) Count 6.8 10x3/uL (4.8-10.8)
[2022-05-22 05:40] LABS: INR-International Normal Ratio 1.1; Prothrombin Time 14.7 sec (12.0-14.7)
[2022-05-22 05:41] LABS: PTT 39.6 sec (22.9-36.1)
[2022-05-22 05:45] LABS: Anion Gap 18 mmol/L (10-20); BUN (Urea Nitrogen) 65 mg/dL (8.4-25.7); Calc. Creatinine Clearance 34 mL/min (70-130); Calcium 8.3 mg/dL (7.8-10.44); Carbon Dioxide 17 mmol/L (23-31); Chloride 110 mmol/L (98-107); Estimated GFR 16; Glucose 88 mg/dL (80-115); Potassium 3.6 mmol/L (3.5-5.1); Sodium 141 mmol/L (136-145)
[2022-05-22] MEDS ORDERED: Famotidine 20 MG TAB PO SCH (09:00)
[2022-05-22] MEDS ORDERED: Carvedilol 6.25 MG TAB PO SCH (09:30)
[2022-05-22] MEDS ORDERED: Carvedilol 25 MG TAB PO SCH (09:45)
[2022-05-22] MEDS: hydrALAZINE 25 MG TAB PO SCH ×3 (10:03→21:10)
[2022-05-22] MEDS: Amoxicillin/Potassium Clav 500 MG TAB PO SCH ×2 (10:03→21:10)
[2022-05-22] MEDS: Sodium Bicarbonate Tab 325 MG TAB PO SCH ×4 (10:03→21:10)
[2022-05-22] MEDS: Polyethylene Glycol 3350 17 GM Packet PO SCH (10:04)
[2022-05-22] MEDS: Lansoprazole 15 MG/5 ML (BATCHED)UDCUP PER TUBE SCH (10:04)
[2022-05-22] MEDS: Tamsulosin HCl 0.4 MG CAP PO SCH (10:04)
[2022-05-22] MEDS: Carvedilol 25 MG TAB PO SCH (18:04)
[2022-05-22] MEDS: traMADol HCl 50 MG TAB PO PRN (21:36)
[2022-05-23] MEDS: Sodium Chloride 0.9% 1,000 ML IV SCH ×2 (00:09→15:36)
[2022-05-23 06:20] LABS: #Eosinphils 0.3 thou/uL (0.0-0.7); #Lymphocytes 1.1 thou/uL (1.20-3.40); #Monocytes 0.5 thou/uL (0.11-0.59); #Neutrophils 3.9 thou/uL (1.40-6.50); %Basophils 0.2 % (0.0-1.0); %Eosinophils 5.7 % (0.0-10.0); %Lymphocytes 18.5 % (21.0-51.0); %Monocytes 9.1 % (0.0-10.0); %Neutrophils 66.5 % (42.0-75.0); Hemoglobin 7.8 g/dL (14.0-18.0); Mean Corpuscular HGB CONC 33.3 g/dL (32.0-36.0); Mean Corpuscular Hemoglobin 31.7 pg (27.0-31.0); Mean Corpuscular Volume 95.2 fl (78.0-98.0); Mean Platelet Volume 10.8 fL (7.4-10.4); Platelet Count 143 10x3/uL (130-400); RBC Distribution Width 15.5 % (11.5-14.5); Red Blood Cell (RBC) Count 2.46 mill/uL (4.70-6.10); White Blood Cell (WBC) Count 5.8 10x3/uL (4.8-10.8)
[2022-05-23 06:29] LABS: INR-International Normal Ratio 1.2; Prothrombin Time 16.1 sec (12.0-14.7)
[2022-05-23 06:30] LABS: PTT 42.5 sec (22.9-36.1)
[2022-05-23 06:40] LABS: Anion Gap 15 mmol/L (10-20); BUN (Urea Nitrogen) 56 mg/dL (8.4-25.7); Calc. Creatinine Clearance 36 mL/min (70-130); Calcium 8.1 mg/dL (7.8-10.44); Carbon Dioxide 19 mmol/L (23-31); Chloride 109 mmol/L (98-107); Estimated GFR 17; Glucose 97 mg/dL (80-115); Potassium 3.2 mmol/L (3.5-5.1); Sodium 140 mmol/L (136-145)
[2022-05-23] MEDS: Lansoprazole 15 MG/5 ML (BATCHED)UDCUP PER TUBE SCH (08:20)
[2022-05-23] MEDS: Tamsulosin HCl 0.4 MG CAP PO SCH (08:21)
[2022-05-23] MEDS: Amoxicillin/Potassium Clav 500 MG TAB PO SCH ×2 (08:21→20:35)
[2022-05-23] MEDS: Sodium Bicarbonate Tab 325 MG TAB PO SCH ×3 (08:21→20:34)
[2022-05-23] MEDS: hydrALAZINE 25 MG TAB PO SCH ×3 (08:21→20:34)
[2022-05-23] MEDS: Carvedilol 25 MG TAB PO SCH ×2 (08:22→17:40)
[2022-05-23] MEDS: Polyethylene Glycol 3350 17 GM Packet PO SCH (08:22)
[2022-05-23 14:53] VITALS: BMI 37.8
[2022-05-23] MEDS: Heparin 5,000 UNITS/ML VIAL SC SCH ×2 (15:39→20:35)
[2022-05-24] MEDS: Sodium Chloride 0.9% 1,000 ML IV SCH ×2 (05:23→17:15)
[2022-05-24 07:04] LABS: #Eosinphils 0.3 thou/uL (0.0-0.7); #Lymphocytes 1.2 thou/uL (1.20-3.40); #Monocytes 0.7 thou/uL (0.11-0.59); #Neutrophils 3.1 thou/uL (1.40-6.50); %Basophils 0.3 % (0.0-1.0); %Eosinophils 5.1 % (0.0-10.0); %Lymphocytes 22.5 % (21.0-51.0); %Monocytes 13.6 % (0.0-10.0); %Neutrophils 58.5 % (42.0-75.0); Hemoglobin 7.9 g/dL (14.0-18.0); Mean Corpuscular HGB CONC 32.2 g/dL (32.0-36.0); Mean Corpuscular Hemoglobin 30.9 pg (27.0-31.0); Mean Corpuscular Volume 96.1 fl (78.0-98.0); Mean Platelet Volume 10.8 fL (7.4-10.4); Platelet Count 186 10x3/uL (130-400); Red Blood Cell (RBC) Count 2.54 mill/uL (4.70-6.10); White Blood Cell (WBC) Count 5.2 10x3/uL (4.8-10.8)
[2022-05-24 07:11] LABS: INR-International Normal Ratio 1.2; Prothrombin Time 15.4 sec (12.0-14.7)
[2022-05-24 07:12] LABS: PTT 44.3 sec (22.9-36.1)
[2022-05-24 07:20] LABS: ALT (SGPT) 14 U/L (8-55); AST (SGOT) 16 U/L (5-34); Albumin 3.2 g/dL (3.4-4.8); Alkaline Phosphatase 168 U/L (40-110); Bilirubin, Direct 0.6 mg/dL (0.1-0.3); Bilirubin, Total 0.9 mg/dL (0.2-1.2); Protein, Total 5.6 g/dL (5.8-8.1)
[2022-05-24 07:23] LABS: Anion Gap 14 mmol/L (10-20); BUN (Urea Nitrogen) 48 mg/dL (8.4-25.7); Calc. Creatinine Clearance 38 mL/min (70-130); Calcium 8.1 mg/dL (7.8-10.44); Carbon Dioxide 20 mmol/L (23-31); Chloride 110 mmol/L (98-107); Estimated GFR 19; Glucose 95 mg/dL (80-115); Potassium 3.2 mmol/L (3.5-5.1); Sodium 141 mmol/L (136-145)
[2022-05-24] MEDS ORDERED: Potassium Bicarbonate/Cit Ac 20 MEQ TAB PO SCH (08:15)
[2022-05-24] MEDS: Lansoprazole 15 MG/5 ML (BATCHED)UDCUP PER TUBE SCH (09:04)
[2022-05-24] MEDS: Heparin 5,000 UNITS/ML VIAL SC SCH ×3 (09:05→20:36)
[2022-05-24] MEDS: hydrALAZINE 25 MG TAB PO SCH ×3 (09:06→20:35)
[2022-05-24] MEDS: Ondansetron PF 4 MG/2 ML Vial IVP PRN ×2 (09:06→15:09)
[2022-05-24] MEDS: Sodium Bicarbonate Tab 325 MG TAB PO SCH ×3 (09:06→20:36)
[2022-05-24] MEDS: Polyethylene Glycol 3350 17 GM Packet PO SCH (09:07)
[2022-05-24] MEDS: Amoxicillin/Potassium Clav 500 MG TAB PO SCH ×2 (09:07→20:36)
[2022-05-24] MEDS: Tamsulosin HCl 0.4 MG CAP PO SCH (09:07)
[2022-05-24] MEDS: Carvedilol 25 MG TAB PO SCH ×2 (09:07→17:12)
[2022-05-24] MEDS ORDERED: Lidocaine 1% (PF) 30 ML VIAL ONE (12:30)
[2022-05-24] MEDS: traMADol HCl 50 MG TAB PO PRN (13:10)
[2022-05-25 07:06] LABS: Hemoglobin 7.5 g/dL (14.0-18.0); Mean Corpuscular HGB CONC 32.5 g/dL (32.0-36.0); Mean Corpuscular Hemoglobin 31.4 pg (27.0-31.0); Mean Corpuscular Volume 96.7 fl (78.0-98.0); Mean Platelet Volume 10.8 fL (7.4-10.4); Platelet Count 203 10x3/uL (130-400); RBC Distribution Width 14.9 % (11.5-14.5); White Blood Cell (WBC) Count 6.5 10x3/uL (4.8-10.8)
[2022-05-25 07:28] LABS: Anion Gap 12 mmol/L (10-20); BUN (Urea Nitrogen) 43 mg/dL (8.4-25.7); Calc. Creatinine Clearance 39 mL/min (70-130); Calcium 7.9 mg/dL (7.8-10.44); Carbon Dioxide 20 mmol/L (23-31); Chloride 109 mmol/L (98-107); Estimated GFR 19; Glucose 104 mg/dL (80-115); Potassium 3.4 mmol/L (3.5-5.1); Sodium 138 mmol/L (136-145)
[2022-05-25 07:35] LABS: Band 11 % (5-11); Lymphocytes 16 % (21-51); MDiff Complete? YES; Monocytes 17 % (0-10); Neutrophil 53 % (42-75); Platelet Morphology Comment Appears Adequate; Polychromasia SLIGHT = 2-3 cells (100X) (0-2/hpf)
[2022-05-25] MEDS: Sodium Bicarbonate Tab 325 MG TAB PO SCH ×3 (09:23→20:27)
[2022-05-25] MEDS: hydrALAZINE 25 MG TAB PO SCH ×3 (09:24→20:27)
[2022-05-25] MEDS: Heparin 5,000 UNITS/ML VIAL SC SCH ×3 (09:24→20:29)
[2022-05-25] MEDS: Amoxicillin/Potassium Clav 500 MG TAB PO SCH ×2 (09:25→20:27)
[2022-05-25] MEDS: Carvedilol 25 MG TAB PO SCH ×2 (09:25→17:03)
[2022-05-25] MEDS: Tamsulosin HCl 0.4 MG CAP PO SCH (09:25)
[2022-05-25] MEDS: Sodium Chloride 0.9% 1,000 ML IV SCH ×2 (09:25→11:06)
[2022-05-25] MEDS: Lansoprazole 15 MG/5 ML (BATCHED)UDCUP PER TUBE SCH (09:26)
[2022-05-25] MEDS: Polyethylene Glycol 3350 17 GM Packet PO SCH (09:28)
[2022-05-25] MEDS: prednisoLONE 10 MG ODT TAB PO SCH (09:58)
[2022-05-25] MEDS: EPOETIN ALFA-EPBX (ESRD) 10,000 UNIT/ML VIAL SC SCH (10:00)
[2022-05-25] MEDS: HumaLOG 300 UNITS/3 ML VIAL SC PRN ×2 (17:03→21:26)
[2022-05-26] MEDS: HumaLOG 300 UNITS/3 ML VIAL SC PRN ×3 (05:26→21:32)
[2022-05-26] MEDS: Sodium Chloride 0.9% 1,000 ML IV SCH (05:28)
[2022-05-26 06:29] LABS: Hemoglobin 7.4 g/dL (14.0-18.0); Mean Corpuscular HGB CONC 31.8 g/dL (32.0-36.0); Mean Corpuscular Hemoglobin 30.9 pg (27.0-31.0); Mean Platelet Volume 10.9 fL (7.4-10.4); Platelet Count 209 10x3/uL (130-400); RBC Distribution Width 14.8 % (11.5-14.5); Red Blood Cell (RBC) Count 2.39 mill/uL (4.70-6.10)
[2022-05-26 06:46] LABS: Anion Gap 14 mmol/L (10-20); BUN (Urea Nitrogen) 44 mg/dL (8.4-25.7); Calc. Creatinine Clearance 39 mL/min (70-130); Calcium 7.9 mg/dL (7.8-10.44); Carbon Dioxide 20 mmol/L (23-31); Chloride 108 mmol/L (98-107); Estimated GFR 19; Glucose 183 mg/dL (80-115); Potassium 3.5 mmol/L (3.5-5.1); Sodium 138 mmol/L (136-145)
[2022-05-26] MEDS: hydrALAZINE 25 MG TAB PO SCH ×3 (08:58→20:35)
[2022-05-26] MEDS: Lansoprazole 15 MG/5 ML (BATCHED)UDCUP PER TUBE SCH (08:58)
[2022-05-26] MEDS: Heparin 5,000 UNITS/ML VIAL SC SCH ×3 (08:59→20:36)
[2022-05-26] MEDS: Carvedilol 25 MG TAB PO SCH ×2 (08:59→16:47)
[2022-05-26] MEDS: prednisoLONE 10 MG ODT TAB PO SCH (08:59)
[2022-05-26] MEDS: Sodium Bicarbonate Tab 325 MG TAB PO SCH ×3 (08:59→20:36)
[2022-05-26] MEDS: Tamsulosin HCl 0.4 MG CAP PO SCH (08:59)
[2022-05-26] MEDS: Polyethylene Glycol 3350 17 GM Packet PO SCH (09:00)
[2022-05-26] MEDS: Amoxicillin/Potassium Clav 500 MG TAB PO SCH ×2 (09:00→20:35)
[2022-05-26 09:15] LABS: Band 14 % (5-11); Lymphocytes 23 % (21-51); MDiff Complete? YES; Monocytes 7 % (0-10); Neutrophil 56 % (42-75); Platelet Morphology Comment Appears Adequate; RBC Morphology Normal
[2022-05-27] MEDS: Sodium Chloride 0.9% 1,000 ML IV SCH (02:31)
[2022-05-27 05:38] LABS: #Lymphocytes 1.5 thou/uL (1.20-3.40); #Monocytes 0.8 thou/uL (0.11-0.59); %Basophils 0.4 % (0.0-1.0); %Eosinophils 0.3 % (0.0-10.0); %Lymphocytes 28.1 % (21.0-51.0); %Monocytes 14.7 % (0.0-10.0); %Neutrophils 56.6 % (42.0-75.0); Hemoglobin 7.4 g/dL (14.0-18.0); Mean Corpuscular HGB CONC 32.3 g/dL (32.0-36.0); Mean Corpuscular Hemoglobin 31.2 pg (27.0-31.0); Mean Corpuscular Volume 96.7 fl (78.0-98.0); Mean Platelet Volume 10.9 fL (7.4-10.4); Platelet Count 240 10x3/uL (130-400); RBC Distribution Width 14.9 % (11.5-14.5); Red Blood Cell (RBC) Count 2.38 mill/uL (4.70-6.10); White Blood Cell (WBC) Count 5.3 10x3/uL (4.8-10.8)
[2022-05-27 06:00] LABS: Anion Gap 15 mmol/L (10-20); BUN (Urea Nitrogen) 40 mg/dL (8.4-25.7); Calc. Creatinine Clearance 41 mL/min (70-130); Calcium 7.7 mg/dL (7.8-10.44); Carbon Dioxide 21 mmol/L (23-31); Chloride 109 mmol/L (98-107); Estimated GFR 20; Glucose 149 mg/dL (80-115); Potassium 3.6 mmol/L (3.5-5.1); Sodium 141 mmol/L (136-145)
[2022-05-27 07:52] VITALS: BP 168/71; TEMP 98.2
[2022-05-27] MEDS: hydrALAZINE 25 MG TAB PO SCH (08:44)
[2022-05-27] MEDS: Sodium Bicarbonate Tab 325 MG TAB PO SCH (08:44)
[2022-05-27] MEDS: Tamsulosin HCl 0.4 MG CAP PO SCH (08:45)
[2022-05-27] MEDS: Amoxicillin/Potassium Clav 500 MG TAB PO SCH (08:45)
[2022-05-27] MEDS: Lansoprazole 15 MG/5 ML (BATCHED)UDCUP PER TUBE SCH (08:45)
[2022-05-27] MEDS: prednisoLONE 10 MG ODT TAB PO SCH (08:45)
[2022-05-27] MEDS: Heparin 5,000 UNITS/ML VIAL SC SCH (08:45)
[2022-05-27] MEDS: Carvedilol 25 MG TAB PO SCH (08:45)
[2022-05-27] MEDS: Polyethylene Glycol 3350 17 GM Packet PO SCH (10:52)
== END 2022-05-27 14:31 | disposition home or self-care (01) | DRG 853 ==
LOC: SURG B 15:37 → CCU 05-14 03:28 → SURG A 05-19 16:42
PROVIDERS: ADMIT Family Medicine; ATTEND Internal Medicine
PROC: 0FT44ZZ Resection of Gallbladder, Percutaneous Endoscopic Approach (ICD-10-PCS; principal; 2022-05-14)
PROC: 02HV33Z Insertion of Infusion Device into Superior Vena Cava, Percutaneous Approach (ICD-10-PCS; 2022-05-14)
PROC: 3E04329 Introduction of Other Anti-infective into Central Vein, Percutaneous Approach (ICD-10-PCS; 2022-05-14)
PROC: 3E043XZ Introduction of Vasopressor into Central Vein, Percutaneous Approach (ICD-10-PCS; 2022-05-14)
PROC: 0FC98ZZ Extirpation of Matter from Common Bile Duct, Via Natural or Artificial Opening Endoscopic (ICD-10-PCS; 2022-05-14)
PROC: 30233N1 Transfusion of Nonautologous Red Blood Cells into Peripheral Vein, Percutaneous Approach (ICD-10-PCS; 2022-05-14)
PROC: 4A133R1 Monitoring of Arterial Saturation, Peripheral, Percutaneous Approach (ICD-10-PCS; 2022-05-14)
PROC: 30233K1 Transfusion of Nonautologous Frozen Plasma into Peripheral Vein, Percutaneous Approach (ICD-10-PCS; 2022-05-14)
PROC: 6A550Z2 Pheresis of Platelets, Single (ICD-10-PCS; 2022-05-14)
PROC: 0S9D3ZZ Drainage of Left Knee Joint, Percutaneous Approach (ICD-10-PCS; 2022-05-24)
DX: A41.9 Sepsis, unspecified organism (principal); D65 Disseminated intravascular coagulation [defibrination syndrome]; G93.41 Metabolic encephalopathy; R65.21 Severe sepsis with septic shock; J96.01 Acute respiratory failure with hypoxia; K80.62 Calculus of gallbladder and bile duct with acute cholecystitis without obstruction; N17.9 Acute kidney failure, unspecified; N18.4 Chronic kidney disease, stage 4 (severe); M87.852 Other osteonecrosis, left femur; M87.851 Other osteonecrosis, right femur; D62 Acute posthemorrhagic anemia; I25.110 Atherosclerotic heart disease of native coronary artery with unstable angina pectoris; I13.0 Hypertensive heart and chronic kidney disease with heart failure and stage 1 through stage 4 chronic kidney disease, or unspecified chronic kidney disease; Z20.822 Contact with and (suspected) exposure to COVID-19; K26.9 Duodenal ulcer, unspecified as acute or chronic, without hemorrhage or perforation; R53.81 Other malaise; E11.22 Type 2 diabetes mellitus with diabetic chronic kidney disease; M10.9 Gout, unspecified; Z96.651 Presence of right artificial knee joint; K57.30 Diverticulosis of large intestine without perforation or abscess without bleeding; N40.1 Benign prostatic hyperplasia with lower urinary tract symptoms; M17.0 Bilateral primary osteoarthritis of knee; E83.42 Hypomagnesemia; R33.8 Other retention of urine; M25.462 Effusion, left knee; E11.21 Type 2 diabetes mellitus with diabetic nephropathy; E78.5 Hyperlipidemia, unspecified; D53.9 Nutritional anemia, unspecified; I50.9 Heart failure, unspecified; K59.00 Constipation, unspecified; K44.9 Diaphragmatic hernia without obstruction or gangrene; Z79.82 Long term (current) use of aspirin; Z95.5 Presence of coronary angioplasty implant and graft; Z79.899 Other long term (current) drug therapy; Z98.49 Cataract extraction status, unspecified eye; Z80.9 Family history of malignant neoplasm, unspecified; Z87.11 Personal history of peptic ulcer disease; Z79.4 Long term (current) use of insulin; E11.649 Type 2 diabetes mellitus with hypoglycemia without coma
CPT/HCPCS: 36415; 36416; 36430; 36600; 71045; 74018; 74181; 74330; 80048; 80053; 80074; 80076; 81001; 82140; 82533; 82607; 82728; 82805; 83540; 83550; 83605; 83690; 83735; 83880; 84100; 84443; 84484; 84560; 85025; 85046; 85384; 85610; 85730; 86850; 86900; 86901; 87040; 87070; 87077; 87186; 87205; 88304; 89060; 93970; 94002; 94003; 94150; 94760; C1713; C1889; J0360; J0696; J1611; J1644; J1815; J2001; J2185; J2272; J2405; J2543; J2704; J3010; J3370; J3475; J3490; J7030; J7042; J7050; J7120; P9016; P9035; P9045; P9047; P9059; Q5105; Q9967; U0002

== ENCOUNTER 2023-07-31 00:53 | Observation (INO) | payer MEDICARE ==
[2023-07-31 02:11] VITALS: BMI 29.6
[2023-07-31] MEDS ORDERED: Glucagon 1 MG/ML KIT IM PRN (02:38)
[2023-07-31] MEDS ORDERED: Ondansetron ODT 4 MG TAB PO PRN (02:38)
[2023-07-31] MEDS ORDERED: HumaLOG 300 UNITS/3 ML VIAL SC PRN ×2 (02:38)
[2023-07-31] MEDS ORDERED: Dextrose 5% in Water 1,000 ML IV PRN (02:38)
[2023-07-31] MEDS ORDERED: Dextrose 50% Abboject 50 ML SYRINGE SLOW IVP PRN (02:38)
[2023-07-31] MEDS ORDERED: Acetaminophen 325 MG TAB PO PRN (02:38)
[2023-07-31] MEDS ORDERED: Ondansetron PF 4 MG/2 ML Vial IVP PRN (02:38)
[2023-07-31] MEDS ORDERED: Ipratropium/Albuterol 3 ML NEB EZPAP PRN (02:46)
[2023-07-31] MEDS: Calcium Carbonate 500 MG ChewTAB PO PRN (03:17)
[2023-07-31 05:47] LABS: Anion Gap 15 mmol/L (10-20); BUN (Urea Nitrogen) 44 mg/dL (8.4-25.7); Calc. Creatinine Clearance 30 mL/min (70-130); Calcium 8.6 mg/dL (7.8-10.44); Carbon Dioxide 17 mmol/L (23-31); Chloride 109 mmol/L (98-107); Estimated GFR 18; Glucose 117 mg/dL (80-115); Potassium 4.7 mmol/L (3.5-5.1); Sodium 136 mmol/L (136-145)
[2023-07-31 06:38] LABS: #Basophils 0.04 10x3/uL (0.0-0.2); %Basophils 0.7 % (0.0-1.0); %Eosinophils 4.9 % (0.0-10.0); %Monocytes 13.3 % (0.0-10.0); %Neutrophils 54.7 % (42.0-75.0); Hematocrit 32.3 % (42.0-52.0); Hemoglobin 10.5 g/dL (14.0-18.0); Mean Corpuscular HGB CONC 32.5 g/dL (32.0-36.0); Mean Corpuscular Hemoglobin 36.2 pg (27.0-31.0); Mean Corpuscular Volume 111.4 fL (78.0-98.0); Mean Platelet Volume 11.1 fL (7.4-10.4); Platelet Count 145 10x3/uL (130-400); RBC Distribution Width 16.1 % (11.5-14.5)
[2023-07-31] MEDS: Tamsulosin HCl 0.4 MG CAP PO SCH (09:48)
[2023-07-31] MEDS: Heparin 5,000 UNITS/ML VIAL SC SCH (09:48)
[2023-07-31] MEDS: Carvedilol 25 MG TAB PO SCH (09:49)
[2023-07-31] MEDS: Cyanocobalamin (Vitamin B-12) 1,000 MCG TAB PO SCH (09:49)
[2023-07-31] MEDS: Sodium Bicarbonate Tab 325 MG TAB PO SCH (09:49)
[2023-07-31] MEDS: Ascorbic Acid 500 mg Chewable Tablet PO SCH (09:49)
[2023-07-31] MEDS: Aspirin 81 mg Enteric Coated Tablet PO SCH (09:49)
[2023-07-31] MEDS: Pantoprazole DR 40 MG TAB PO SCH (09:49)
[2023-07-31] MEDS: Rosuvastatin 20 MG TAB PO SCH (09:49)
[2023-07-31] MEDS: Insulin Glargine 30 UNITS/0.3 ML VIAL SC SCH (09:50)
[2023-07-31 10:39] LABS: Troponin I 0.013 ng/mL (< 0.028)
[2023-07-31 12:12] LABS: Troponin I 0.014 ng/mL (< 0.028)
[2023-07-31 12:26] VITALS: BP 128/53; TEMP 97.9
== END 2023-07-31 15:05 | disposition home or self-care (01) ==
LOC: MSONC 01:38
PROVIDERS: ADMIT Student in an Organized Health Care Education/Training Program; ATTEND Student in an Organized Health Care Education/Training Program
DX: I12.9 Hypertensive chronic kidney disease with stage 1 through stage 4 chronic kidney disease, or unspecified chronic kidney disease (principal); E78.5 Hyperlipidemia, unspecified; E11.22 Type 2 diabetes mellitus with diabetic chronic kidney disease; I25.10 Atherosclerotic heart disease of native coronary artery without angina pectoris; N18.4 Chronic kidney disease, stage 4 (severe); R09.02 Hypoxemia; N40.0 Benign prostatic hyperplasia without lower urinary tract symptoms; E87.5 Hyperkalemia; E87.20 Acidosis, unspecified; M10.9 Gout, unspecified; Z79.82 Long term (current) use of aspirin; Z79.899 Other long term (current) drug therapy; Z95.5 Presence of coronary angioplasty implant and graft; Z79.4 Long term (current) use of insulin
CPT/HCPCS: 0240U; 71250; 74177; 80048; 80053; 81001; 82962; 83605; 83690; 83735; 83880; 84484 ×3; 85025 ×2; 93005; 96374; 99285; J1644; J2270; 36415; 36416; J1815

== ENCOUNTER 2023-10-04 09:43 | Outpatient (CLI) | payer MEDICARE | END 2023-10-04 09:44 | disposition home or self-care (01) | LOC: MRI 09:43 | PROVIDERS: ATTEND Family Medicine | DX: M47.816 Spondylosis without myelopathy or radiculopathy, lumbar region (principal); M47.817 Spondylosis without myelopathy or radiculopathy, lumbosacral region; M48.061 Spinal stenosis, lumbar region without neurogenic claudication; M48.07 Spinal stenosis, lumbosacral region | CPT/HCPCS: 72148 ==